=== PATIENT | male | born 1960 | race American Indian/Alaskan Native ===

== ENCOUNTER 2020-11-17 15:14 | Emergency (ER) | payer OTHER ==
--- NOTE | 2020-11-17 16:35 | CT ---
INDICATION: Fall with head pain TECHNIQUE: Head CT without contrast. COMPARISON: None FINDINGS: CSF spaces: Within normal limits for age. Brain parenchyma: Normal santana-white junction. No sign of mass, hemorrhage, or midline shift. Skull base and calvarium: The visualized paranasal sinuses and mastoid air cells demonstrate no acute or significant findings. The visualized orbits are grossly unremarkable. No skull fractures. IMPRESSION: No acute abnormality. Please note that all CT scans at this facility use dose modulation, iterative reconstruction, and/or weight-based dosing when appropriate to reduce radiation dose to as low as reasonably achievable. Dictated by Pita Moreau MD @ Nov 17 2020 4:30PM Signed by Dr. Pita Moreau @ Nov 17 2020 4:33PM
--- NOTE | 2020-11-17 16:37 | CT ---
INDICATION: Neck pain after fall TECHNIQUE: CT cervical spine without contrast. COMPARISON: None FINDINGS: Vertebral alignment: Alignment is normal. Vertebrae: There are no fractures or suspicious bony lesions. Discs and facet joints: Mild multilevel degenerative disc changes. Extraspinal findings: Paraspinous soft tissues are unremarkable. IMPRESSION: 1. No sign of acute injury. 2. Multilevel degenerative spondylosis. Please note that all CT scans at this facility use dose modulation, iterative reconstruction, and/or weight-based dosing when appropriate to reduce radiation dose to as low as reasonably achievable. Dictated by Pita Moreau MD @ Nov 17 2020 4:29PM Signed by Dr. Pita Moreau @ Nov 17 2020 4:35PM
--- NOTE | 2020-11-17 16:49 | CR ---
Indication: Fall Technique: Three views right hand Comparison: November 22, 2018 Findings: Bones: Minimally displaced oblique acute fracture through the proximal through distal diaphysis of the 5th proximal phalanx. The fracture does not involve the joint spaces. There is also a tiny osseous fragment medial to the 5th distal phalanx which may represent a small cortical fracture. There is an old fracture of the ulnar styloid process. Joint spaces: Unremarkable. Soft tissues: Unremarkable. Impression: Minimally displaced oblique fracture of the 5th proximal phalanx. Tiny cortical fracture the 5th distal phalanx of unknown age. This is new compared to November 22, 2018. Old fracture of the ulnar styloid process. Dictated by Pita Moreau MD @ Nov 17 2020 4:44PM Signed by Dr. Pita Moreau @ Nov 17 2020 4:48PM
--- NOTE | 2020-11-17 17:48 | EDM.PDOC ---
ED HPI GENERAL MEDICAL PROBLEM - General Chief Complaint: General Stated Complaint: pain back of head Time Seen by Provider: 11/17/20 15:16 Source of Information: Reports: Patient History Limitations: Reports: No Limitations - History of Present Illness INITIAL COMMENTS - FREE TEXT/NARRATIVE: HISTORY AND PHYSICAL: History of present illness: Patient is a 60-year-old male who presents emergency room today with concern of right hand pinky finger injury, right rib injury, and head and neck injury that occurred 4 days ago when patient slipped on the ice and fell. Patient states that since then he has had some neck stiffness, headache, right rib pain, and pinky finger pain of his right hand. Patient states that he did not come to be evaluated sooner as he thought everything would be okay but states he has continued to have symptoms so came to be evaluated. Patient states that he does drink alcohol daily and chronically. Patient states that he has not taken anything for his symptoms. Patient states that he did not lose consciousness when he fell. Patient states he is not on any blood thinning medication. Patient denies any other symptoms or concerns. Patient denies fever, chills, chest pain, shortness of breath, or cough. Denies change in vision, syncope, or near syncope. Denies nausea, vomiting, abdominal pain, diarrhea, constipation, or dysuria. Has not noted any blood in urine or stool. Patient has been eating and drinking appropriately. Review of systems: As per history of present illness and below otherwise all systems reviewed and negative. Past medical history: As per history of present illness and as reviewed below otherwise noncontributory. Surgical history: As per history of present illness and as reviewed below otherwise noncontrib utory. Social history: See social history for further information Family history: As per history of present illness and as reviewed below otherwise noncontributory. Physical exam: General: Patient is alert, oriented, and in no acute distress. Patient sitting comfortably on exam table. Vital stable and reviewed by me HEENT: Atraumatic, normocephalic, pupils equal and reactive bilaterally, neg ative for conjunctival pallor or scleral icterus, mucous membranes moist, TMs normal bilaterally, throat clear, neck supple, nontender, trachea midline. No drooling or trismus noted. No meningeal signs. No hot potato voice noted. Lungs/chest: She does have generalized pain to palpation of the anterior inferior ribs. No sign of crepitus noted on palpation. Otherwise, clear to auscultation, breath sounds equal bilaterally, chest nontender. Heart: S1S2, regular rate and rhythm without overt murmur Abdomen: Soft, nondistended, nontender. Negative for masses or hepatosplenomegaly. Negative for costovertebral tenderness. Pelvis: Stable nontender. Genitourinary: Deferred. Rectal: Deferred. Skin: Intact, warm, dry. No lesions or rashes noted. Extremities: No obvious deformity of the complete spine. No step-offs, crepitus, or point tenderness to palpation of the complete spine. Patient does have some discomfort of the bilateral trapezius muscles of the cervical spine. Patient was able to ambulate into the ED today without difficulty. Patient has full range of motion of bilateral lower extremities without pain or deficit. Patient has full range of motion of bilateral left upper extremity without pain or deficit. Patient does have limited range of motion of the right hand pinky finger due to pain. This finger does appear mild to moderately edematous which does obscure the exam. No erythema noted. Patient does have tenderness to palpation of the proximal fifth digit but neurovascularly unremarkable. Pulses grossly intact of the right upper extremity with capillary refill less than 2 seconds. Patient does have full range of motion of remainder right upper extremity. Otherwise, atraumatic, negative for cords or calf pain. Neurovascular unremarkable. Neuro: Awake, alert, oriented. Cranial nerves II through XII unremarkable. Cerebellum unremarkable. Motor and sensory unremarkable throughout. Exam nonfocal. Notes: Patient eloped the ED while awaiting for radiology interpretation of diagnostics. I was unable to address patient's proximal phalanx fracture before he eloped the ED. Diagnostics: Hand XR, Cervical spine/head CT, (Patient declines rib/chest XR) Therapeutics: Patient eloped the ED Prescription: Patient eloped the ED Impression: Head injury Neck injury Proximal phalanx fracture, right, 5th digit Right sided rib injury Eloped the ED Plan: Patient eloped the ED Definitive disposition and diagnosis as appropriate pending reevaluation and review of above. Back of head Pain Score (Numeric/FACES): 7 - Related Data Allergies Allergy/AdvReac Type Severity Reaction Status Date / Time No Known Allergies Allergy Verified 11/17/20 15:46 Home Meds: Home Meds . [No Known Home Meds] 11/22/18 [History] Past Medical History - Past Health History Medical/Surgical History: Denies Medical/Surgical History Other Musculoskeletal History: fx of bilat ankles and R hip - Infectious Disease History Infectious Disease History: Reports: Chicken Pox Social & Family History - Family History Family Medical History: No Pertinent Family History - Caffeine Use Caffeine Use: Reports: None - Alcohol Use Date of Last Drink: 11/17/20 - Recreational Drug Use Recreational Drug Use: No ED ROS GENERAL - Review of Systems Review Of Systems: Comprehensive ROS is negative, except as noted in HPI. ED EXAM, GENERAL - Physical Exam Exam: See Below (see dictation) Course - Vital Signs Last Recorded V/S: Last Vital Signs Temp 97.0 F 11/17/20 15:36 Pulse 79 11/17/20 15:36 Resp 18 11/17/20 15:36 BP 147/84 H 11/17/20 15:36 Pulse Ox 95 11/17/20 15:36 Departure - Departure Time of Disposition: 17:50 Disposition: Eloped 07 Clinical Impression: Rib injury Head injury Qualifiers: Encounter type: initial encounter Qualified Code(s): S09.90XA - Unspecified injury of head, initial encounter Neck injury Qualifiers: Encounter type: initial encounter Qualified Code(s): S19.9XXA - Unspecified injury of neck, initial encounter Proximal phalanx fracture of finger Qualifiers: Encounter type: initial encounter Finger: little finger Fracture type: closed Fracture alignment: displaced Laterality: right Qualified Code(s): S62.616A - Displaced fracture of proximal phalanx of right little finger, initial encounter for closed fracture - Discharge Information Referrals: PCP,None [Primary Care Provider] - Forms: ED Department Discharge Additional Instructions: Patient eloped the ED prior to discharge Sepsis Event Note (ED) - Evaluation Sepsis Screening Result: No Definite Risk - Focused Exam Vital Signs: Vital Signs Temp Pulse Resp BP Pulse Ox 11/17/20 15:36 97.0 F 79 18 147/84 H 95
== END 2020-11-17 16:55 | disposition left against medical advice (07) ==
LOC: MW.ED 15:14
DX: S62.616A Displaced fracture of proximal phalanx of right little finger, initial encounter for closed fracture (principal); S09.90XA Unspecified injury of head, initial encounter; S19.9XXA Unspecified injury of neck, initial encounter; S29.9XXA Unspecified injury of thorax, initial encounter; W00.0XXA Fall on same level due to ice and snow, initial encounter
CPT/HCPCS: 70450; 70450-26; 72125; 72125-26; 73130-26-RT; 73130-RT; 99283; 99284-25

== ENCOUNTER 2020-11-28 22:10 | Emergency (ER) | payer OTHER ==
--- NOTE | 2020-11-28 22:14 | EDM.PDOC ---
ED HPI GENERAL MEDICAL PROBLEM - General Stated Complaint: EMS ARRIVAL Time Seen by Provider: 11/28/20 22:12 - History of Present Illness INITIAL COMMENTS - FREE TEXT/NARRATIVE: 60-year-old male presents with fall with neck pain and alcohol intoxication. The patient states that he was walking out of the bar he lost his balance and fell striking his head. Unclear about loss of consciousness he initially did not want to come to the hospital but EMS was able to convince him. He denies headache he reports neck pain he also reports stable right lateral chest pain that he attributes to rib injury from another fall 3 weeks ago. He denies any pain in his abdomen he denies any pain in his extremities. No exacerbating or alleviating factors no other associated symptoms. Neck Pain Score (Numeric/FACES): 1 - Related Data Allergies Allergy/AdvReac Type Severity Reaction Status Date / Time No Known Allergies Allergy Verified 11/17/20 15:46 Home Meds: Home Meds . [No Known Home Meds] 11/22/18 [History] Past Medical History - Past Health History Medical/Surgical History: Denies Medical/Surgical History Other Musculoskeletal History: fx of bilat ankles and R hip - Infectious Disease History Infectious Disease History: Reports: Chicken Pox Social & Family History - Family History Family Medical History: No Pertinent Family History - Caffeine Use Caffeine Use: Reports: None ED ROS GENERAL - Review of Systems Review Of Systems: See Below Free Text/Narrative/Comment: General: No fever. Skin: No rash. Eyes: No vision problems. ENT: No sore throat. Neck: Per HPI Respiratory: No shortness of breath. Cardiac: No chest pain. Gastrointestinal: No nausea, vomiting or abdominal pain. Urinary: No dysuria. Musculoskeletal: No myalgias/arthralgias. Neurologic: No headache. ED EXAM, GENERAL - Physical Exam Exam: See Below Free Text/Narrative:: General Appearance: No acute distress, appears comfortable Skin: No rash HEENT: Normocephalic/atraumatic, sclera anicteric, mucous membranes moist Neck: Midline tenderness at C5 c-collar applied Chest and Lungs: Bilateral breath sounds, clear to auscultation Cardiovascular: Regular rate and rhythm, no murmur Abdomen: Soft, non-tender Back: Normal Musculoskeletal: No edema or tenderness Neurologic: Awake, alert, no obvious deficits, moving all extremities Psychiatric: Appropriate, cooperative Course - Vital Signs Last Recorded V/S: Last Vital Signs Temp 98.1 F 11/28/20 22:10 Pulse 153 H 11/28/20 22:10 Resp 14 11/28/20 22:10 BP 153/95 H 11/28/20 22:10 Pulse Ox 95 11/28/20 22:10 Departure - Departure Time of Disposition: 23:10 Disposition: Home, Self-Care 01 Condition: Good Clinical Impression: Head injury Qualifiers: Encounter type: initial encounter Qualified Code(s): S09.90XA - Unspecified injury of head, initial encounter - Discharge Information *PRESCRIPTION DRUG MONITORING PROGRAM REVIEWED*: Not Applicable *COPY OF PRESCRIPTION DRUG MONITORING REPORT IN PATIENT AISHWARYA: Not Applicable Instructions: Head Injury, Adult Additional Instructions: The following information is given to patients seen in the emergency department who are being discharged to home. This information is to outline your options for follow-up care. We provide all patients seen in our emergency department with a follow-up referral. The need for follow-up, as well as the timing and circumstances, are variable depending upon the specifics of your emergency department visit. If you don't have a primary care physician on staff, we will provide you with a referral. We always advise you to contact your personal physician following an emergency department visit to inform them of the circumstance of the visit and for follow-up with them and/or the need for any referrals to a consulting specialist. The emergency department will also refer you to a specialist when appropriate. This referral assures that you have the opportunity for follow-up care with a specialist. All of these measure are taken in an effort to provide you with optimal care, which includes your follow-up. Under all circumstances we always encourage you to contact your private physician who remains a resource for coordinating your care. When calling for follow-up care, please make the office aware that this follow-up is from your recent emergency room visit. If for any reason you are refused follow-up, please contact the [facility] Emergency Department at and asked to speak to the emergency department charge nurse. Sepsis Event Note (ED) - Focused Exam Vital Signs: Vital Signs Temp Pulse Resp BP Pulse Ox 11/28/20 22:10 98.1 F 153 H 14 153/95 H 95 - Assessment/Plan Assessment:: 60-year-old male presenting with fall while intoxicated with neck pain. CT brain and C-spine ordered I believe you can clinically clear the chest abdomen pelvis and other extremities however. Patient initially was agreeable to staying for scans but then attempted to leave since he is intoxicated police were called and currently sitting with him he remains calm and cooperative at this time. If imaging is without sign of traumatic injury we hopefully be able to clear his collar and discharge. 2310: Imaging negative c-collar was able to be cleared patient ambulates well. He will be given a courtesy ride home by the police.
--- NOTE | 2020-11-28 23:04 | CT ---
INDICATION: fall, intoxicated CT CERVICAL SPINE WITHOUT CONTRAST TECHNIQUE: Multidetector axial CT imaging was performed through the cervical spine, without contrast. Sagittal and coronal reconstructions were generated. COMPARISON: 11/17/[address] FINDINGS: No acute fractures are identified. There is straightening of cervical lordosis, possibly due to muscle spasm. Osseous alignment is otherwise unremarkable and no subluxation is seen. Prevertebral soft tissues appear normal. Scattered mild cervical spine degenerative changes are noted. Included portions of the airway and lung apices are within normal limits. IMPRESSION: Straightened lordosis, possibly due to muscle spasm. No fracture, subluxation, or other acute finding identified. JESSE MUÑOZ MD [employer] Dictated by: Micah Muñoz MD @ 11/28/2020 23:02:41 (Electronically Signed)
--- NOTE | 2020-11-28 23:06 | CT ---
INDICATION: fall, intoxicated CT HEAD WITHOUT CONTRAST TECHNIQUE: Multiple axial CT images were performed through the head without intravenous contrast administration. COMPARISON: 11/17/[address] FINDINGS: No acute intracranial hemorrhage is identified. No extra-axial collections are evident and there is no mass effect or midline shift. Ventricles are normal in size and configuration. Brain parenchyma appears normal with unremarkable santana-white differentiation. Osseous structures are within normal limits and no fractures are seen. Included portions of the paranasal sinuses and mastoid air cells are normally aerated. IMPRESSION: Normal non-contrast head CT. JESSE MUÑOZ MD [employer] [facility] Dictated by: Micah Muñoz MD @ 11/28/2020 23:05:40 (Electronically Signed)
== END 2020-11-28 23:15 | disposition home or self-care (01) ==
LOC: MW.ED 22:10
DX: S09.90XA Unspecified injury of head, initial encounter (principal); M54.2 Cervicalgia; R07.9 Chest pain, unspecified; F10.129 Alcohol abuse with intoxication, unspecified; W18.30XA Fall on same level, unspecified, initial encounter; Y93.01 Activity, walking, marching and hiking
CPT/HCPCS: 70450; 70450-26; 72125; 72125-26; 99283; 99284-25

== ENCOUNTER 2022-01-18 23:45 | Emergency (ER) | payer SELFPAY | END 2022-01-19 01:07 | disposition home or self-care (01) | LOC: MW.ED 23:45 | DX: S00.03XA Contusion of scalp, initial encounter (principal); W18.09XA Striking against other object with subsequent fall, initial encounter | CPT/HCPCS: 70450; 70450-26; 72125; 72125-26; 99284; 99284-25 ==

== ENCOUNTER 2022-05-14 17:17 | Emergency (ER) | payer OTHER ==
[2022-05-14] MEDS ORDERED: Sodium Chloride 0.9% 10 ML Syringe FLUSH PRN (17:22)
[2022-05-14] MEDS ORDERED: Sodium Chloride 0.9% 2.5 ML Syringe FLUSH PRN (17:22)
[2022-05-14 18:07] LABS: CARBON DIOXIDE,CO2 24.2 mmol/L (21.0-32.0); POTASSIUM,K 3.7 mmol/L (3.5-5.1)
== END 2022-05-14 20:17 | disposition home or self-care (01) ==
LOC: MW.ED 17:17
DX: F10.129 Alcohol abuse with intoxication, unspecified (principal); S09.90XA Unspecified injury of head, initial encounter; W18.30XA Fall on same level, unspecified, initial encounter
CPT/HCPCS: 36415; 70450; 71045; 72125; 72131; 73030; 73502; 80053; 80307; 85025; 99284; J3490

== ENCOUNTER 2022-07-10 07:20 | Emergency (ER) | payer SELFPAY | END 2022-07-10 09:15 | disposition home or self-care (01) | LOC: MW.ED 07:20 | DX: S02.31XA Fracture of orbital floor, right side, initial encounter for closed fracture (principal); I48.91 Unspecified atrial fibrillation; W22.09XA Striking against other stationary object, initial encounter; Y92.009 Unspecified place in unspecified non-institutional (private) residence as the place of occurrence of the external cause | CPT/HCPCS: 70450; 70450-26; 70480; 70480-26; 99284 ==

== ENCOUNTER 2022-10-21 01:13 | Emergency (ER) | payer OTHER ==
[2022-10-21] MEDS: Acetaminophen 325 MG Tab PO ONE (06:01)
== END 2022-10-21 07:55 | disposition home or self-care (01) ==
LOC: MW.ED 01:13
DX: F10.129 Alcohol abuse with intoxication, unspecified (principal); X31.XXXA Exposure to excessive natural cold, initial encounter
CPT/HCPCS: 99283; A9270

== ENCOUNTER 2022-11-25 11:10 | Emergency (ER) | payer OTHER | END 2022-11-25 12:32 | LOC: MW.ED 11:10 | DX: Z02.89 Encounter for other administrative examinations (principal); I48.91 Unspecified atrial fibrillation | CPT/HCPCS: 99282 ==

== ENCOUNTER 2022-12-02 00:14 | Emergency (ER) | payer OTHER | END 2022-12-02 01:38 | disposition home or self-care (01) | LOC: MW.ED 00:14 | DX: F10.929 Alcohol use, unspecified with intoxication, unspecified (principal); I48.91 Unspecified atrial fibrillation; Z72.0 Tobacco use | CPT/HCPCS: 82947; 99282; 99283 ==

== ENCOUNTER 2023-02-10 14:34 | Emergency (ER) | payer OTHER | END 2023-02-10 15:22 | disposition home or self-care (01) | LOC: MW.ED 14:34 | DX: I10 Essential (primary) hypertension (principal); I48.91 Unspecified atrial fibrillation; Z79.01 Long term (current) use of anticoagulants | CPT/HCPCS: 99283 ==

== ENCOUNTER 2023-03-15 22:13 | Emergency (ER) | payer OTHER ==
[~2023-03-15 22:13] MED LIST: LORazepam 1 MG Tab PO ONE
== END 2023-03-15 22:39 | disposition home or self-care (01) ==
LOC: MW.ED 22:13
DX: F32.A Depression, unspecified (principal); Z76.0 Encounter for issue of repeat prescription; I48.91 Unspecified atrial fibrillation; I10 Essential (primary) hypertension
CPT/HCPCS: 99283; A9270

== ENCOUNTER 2023-05-01 17:19 | Emergency (ER) | payer OTHER ==
[2023-05-01] MEDS ORDERED: Sodium Chloride 0.9% 2.5 ML Syringe FLUSH PRN (17:22)
[2023-05-01] MEDS ORDERED: Sodium Chloride 0.9% 1,000 ML IV ONE (17:22)
[2023-05-01] MEDS ORDERED: Sodium Chloride 0.9% 10 ML Syringe FLUSH PRN (17:22)
[2023-05-01 17:31] LABS: BASOPHILS PERCENT AUTO 0.6 % (0.0-1.5); EOSINOPHILS ABSOLUTE AUTO 0.2 K/uL (0.0-0.7); HEMATOCRIT 37.4 % (38.0-50.0); HEMOGLOBIN 12.7 g/dL (13.0-17.0); LYMPHOCYTES ABSOLUTE AUTO 1.2 K/uL (0.6-2.4); LYMPHOCYTES PERCENT AUTO 23.2 % (16.0-40.0); MEAN CORPUSCULAR HEMOGLOBIN 32.6 pg (27.0-32.0); MEAN CORPUSCULAR VOLUME 96.1 fL (80.0-98.0); MONOCYTES ABSOLUTE AUTO 0.8 K/uL (0.0-0.8); NEUTROPHILS ABSOLUTE AUTO 2.9 K/uL (1.4-5.7); NEUTROPHILS PERCENT AUTO 57.2 % (48.0-80.0); NRBC ABSOLUTE 0 K/uL; RED BLOOD CELL COUNT 3.89 M/uL (4.50-5.90); WHITE BLOOD CELL COUNT,WBC 5.05 K/uL (4.0-11.0)
[2023-05-01 17:43] LABS: PLATELET COUNT,PLT 110 K/uL (150-400)
[2023-05-01 17:55] LABS: A/G RATIO 0.7 (0.9-1.6); ALBUMIN 2.9 g/dL (3.4-5.0); BILIRUBIN TOTAL 0.4 mg/dL (0.2-1.0); CALCIUM 7.6 mg/dL (8.5-10.1); CARBON DIOXIDE,CO2 29.6 mmol/L (21.0-32.0); CREATININE 0.7 mg/dL (0.8-1.3); EST CRCL DRUG DOSING (CG) 101.27 mL/min; POTASSIUM,K 3.6 mmol/L (3.5-5.1)
[2023-05-01 18:30] LABS: APPEARANCE,URINE CLEAR; BILIRUBIN,URINE NEGATIVE (NEGATIVE); COLOR,URINE YELLOW; GLUCOSE,URINE NEGATIVE (NEGATIVE); KETONES,URINE NEGATIVE (NEGATIVE); LEUKOCYTE ESTERASE,URINE NEGATIVE (NEGATIVE); NITRITE,URINE NEGATIVE (NEGATIVE); OCCULT BLOOD,URINE NEGATIVE (NEGATIVE); PROTEIN,URINE NEGATIVE (NEGATIVE); UROBILINOGEN,URINE 0.2 EU/dL (<2.0)
[2023-05-01 18:39] LABS: AMPHETAMINES SCREEN, URINE NEGATIVE (CUTOFF=500); BARBITURATE SCREEN,URINE NEGATIVE (CUTOFF=200); BENZODIAZEPINES SCREEN,URINE NEGATIVE (CUTOFF=150); BUPRENORPHINE SCREEN,URINE NEGATIVE (CUTOFF=10); METHADONE SCREEN, URINE NEGATIVE (CUTOFF=200); METHAMPHETAMINES SCREEN, URINE NEGATIVE (CUTOFF=500); OXYCODONE SCREEN,URINE NEGATIVE (CUT0FF=100); PCP SCREEN,URINE NEGATIVE (CUTOFF=25); PROPOXYPHENE SCREEN,URINE NEGATIVE (CUTOFF=300); THC SCREEN,URINE 20 NG/ML NEGATIVE (CUTOFF=50)
[2023-05-01] MEDS ORDERED: Iopamidol 755 Mg/ML 100 ML Bottle IVPUSH ONE (19:09)
== END 2023-05-01 19:08 | disposition left against medical advice (07) ==
LOC: MW.ED 17:19
DX: S01.01XA Laceration without foreign body of scalp, initial encounter (principal); I48.91 Unspecified atrial fibrillation; I10 Essential (primary) hypertension; W10.9XXA Fall (on) (from) unspecified stairs and steps, initial encounter
CPT/HCPCS: 12002; 36415; 70450; 71045; 71260; 72125; 74177; 80053; 80305; 80307; 81003; 84484; 85025; 85610; 93005; 96360; 99285; J3490; J7030; Q9967; 93010; 99284

== ENCOUNTER 2024-06-04 03:51 | Emergency (ER) | payer OTHER ==
[2024-06-04] MEDS: Lidocaine 1% with EPINEPHrine 1:100,000 10 ML MDV INJECT ONE (05:52)
[2024-06-04] MEDS: Amoxicillin/Clavulanate K 875-125 MG Tab PO ONE (05:52)
== END 2024-06-04 06:55 | disposition home or self-care (01) ==
LOC: MW.ED 03:51
DX: S02.40CA Maxillary fracture, right side, initial encounter for closed fracture (principal); S01.81XA Laceration without foreign body of other part of head, initial encounter; H10.89 Other conjunctivitis; I10 Essential (primary) hypertension; Z79.899 Other long term (current) drug therapy; W01.198A Fall on same level from slipping, tripping and stumbling with subsequent striking against other object, initial encounter; Y93.01 Activity, walking, marching and hiking; Z75.8 Other problems related to medical facilities and other health care; Y92.009 Unspecified place in unspecified non-institutional (private) residence as the place of occurrence of the external cause
CPT/HCPCS: 12011; 70450; 70486; 99283; A9270; 99284; J3490

== ENCOUNTER 2024-06-08 18:33 | Emergency (ER) | payer OTHER | END 2024-06-08 19:52 | LOC: MW.ED 18:33 | DX: Z02.89 Encounter for other administrative examinations (principal); I10 Essential (primary) hypertension; Z75.8 Other problems related to medical facilities and other health care | CPT/HCPCS: 99283 ==

== ENCOUNTER 2025-05-12 09:12 | Emergency (ER) | payer SELFPAY | END 2025-05-12 09:37 | LOC: MW.ED 09:12 | DX: Z02.89 Encounter for other administrative examinations (principal); I10 Essential (primary) hypertension; I48.91 Unspecified atrial fibrillation; E11.9 Type 2 diabetes mellitus without complications | CPT/HCPCS: 82947; 99283 ==

== ENCOUNTER 2025-10-10 00:45 | Emergency (ER) | payer SELFPAY | END 2025-10-10 01:00 | disposition left against medical advice (07) | LOC: MW.ED 00:45 | DX: Z53.21 Procedure and treatment not carried out due to patient leaving prior to being seen by health care provider (principal) ==